=== PATIENT | male | born 1940 | race Caucasian/White ===

== ENCOUNTER 2018-05-10 12:11 | Emergency (ER) | payer MEDICARE ==
--- NOTE | 2018-05-10 12:36 | Emergency Department Record ---
History of Present Illness - General Chief complaint: Male Urogenital Problem Stated complaint: URINATING BLOOD Time Seen by Provider: 05/10/18 12:35 Source: Patient Mode of Arrival: Ambulatory - History of Present Illness Initial comments: The patient states he began urinating blood sometime during the night. He states this happened last January and he was admitted to [facility] for this as well as for bradycardia. He was instructed to followup with Dr. Weeks urology, but has not yet seen him--he has an appointment on 06-05-18 in his office, he thinks for a cystoscopy. Today the "same thing" happened as before. He denies a sense of urinary retention, nausea, abdominal pain, flank pain, fevers, chills , or any discomfort. Improves with: None Worsens with: None Reports: Blood in urine - Related Data Previous Rx's Medication Instructions Recorded Ciprofloxacin HCl [Cipro] 500 mg PO Q12HR #20 tablet 05/10/18 Allergies Allergy/AdvReac Type Severity Reaction Status Date / Time No Known Drug Allergies Allergy Verified 05/10/18 12:19 Travel Screening - Travel/Exposure Within Last 30 Days Have you traveled within the last 30 days?: No Review of Systems Reviewed: No additional complaints except as noted below Constitutional: Reports: As per HPI. Denies: Chills, Fever, Malaise, Night sweats, Weakness, Weight change Eyes: Reports: As per HPI. Denies: Eye discharge, Eye pain, Photophobia, Vision change ENT: Reports: As per HPI. Denies: Congestion, Dental pain, Ear pain, Epistaxis , Hearing loss, Throat pain Respiratory: Reports: As per HPI. Denies: Cough, Dyspnea, Hemoptysis, Stridor, Wheezes Cardiovascular: Reports: As per HPI. Denies: Arrhythmia, Chest pain, Dyspnea on exertion, Edema, Murmurs, Orthopnea, Palpitations, Paroxysmal nocturnal dyspnea, Rheumatic Fever, Syncope Endocrine: Reports: As per HPI. Denies: Fatigue, Heat or cold intolerance, Polydipsia, Polyuria Gastrointestinal: Reports: As per HPI. Denies: Abdominal pain, Constipation, Diarrhea, Hematemesis, Hematochezia, Melena, Nausea, Vomiting Genitourinary: Reports: As per HPI. Denies: Dysuria, Frequency, Hematuria, Incontinence, Retention, Testicular pain, Testicular mass, Urgency Musculoskeletal: Reports: As per HPI. Denies: Arthralgia, Back pain, Gout, Joint swelling, Myalgia, Neck pain Skin: Reports: As per HPI. Denies: Bruising, Change in color, Change in hair/ nails, Lesions, Pruritus, Rash Neurological: Reports: As per HPI. Denies: Abnormal gait, Confusion, Headache, Numbness, Paresthesias, Seizure, Tingling, Tremors, Vertigo, Weakness Psychiatric: Reports: As per HPI. Denies: Anxiety, Auditory hallucinations, Depression, Homicidal thoughts, Suicidal thoughts, Visual hallucinations Hematological/Lymphatic: Reports: As per HPI. Denies: Anemia, Blood Clots, Easy bleeding, Easy bruising, Swollen glands Past Medical History - SOCIAL HISTORY Smoking Status: Former smoker Alcohol Use: None Drug Use: None - RESPIRATORY Hx Respiratory Disorders: No - CARDIOVASCULAR Hx Cardio Disorders: No - NEURO Hx Neuro Disorders: No - GI Hx GI Disorders: No - Hx Genitourinary Disorders: Yes Hx UTI: Yes Comment:: currently sees Dr Weeks for urinating blood - ENDOCRINE Hx Endocrine Disorders: No - MUSCULOSKELETAL Hx Musculoskeletal Disorders: No - PSYCH Hx Psych Problems: No - HEMATOLOGY/ONCOLOGY Hx Hematology/Oncology Disorders: No Family Medical History Any Significant Family History?: No Physical Exam - General General Appearance: Alert, Oriented x3, Cooperative, No acute distress - Head Head exam: Normal inspection - Eye Eye exam: Normal appearance, PERRL Pupils: Normal accommodation - ENT ENT exam: Normal exam, Mucous membranes moist, Normal external ear exam, Normal orophraynx, TM's normal bilaterally Ear exam: Normal external inspection. negative: External canal tenderness Nasal Exam: Normal inspection. negative: Discharge, Sinus tenderness Mouth exam: Normal external inspection, Tongue normal Teeth exam: Normal inspection. negative: Dental caries Throat exam: Normal inspection. negative: Tonsillar erythema, Tonsillar exudate - Neck Neck exam: Normal inspection, Full ROM. negative: Tenderness - Respiratory Respiratory exam: Normal lung sounds bilaterally. negative: Respiratory distress - Cardiovascular Cardiovascular Exam: Regular rate, Normal rhythm, Normal heart sounds - GI/Abdominal GI/Abdominal exam: Soft, Normal bowel sounds. negative: Tenderness - Rectal Rectal exam: Deferred - exam: Deferred - Extremities Extremities exam: Normal inspection, Full ROM, Normal capillary refill. negative: Tenderness - Back Back exam: Reports: Normal inspection, Full ROM. Denies: CVA tenderness (R), CVA tenderness (L), Muscle spasm, Rash noted, Tenderness - Neurological Neurological exam: Alert, CN II-XII intact, Normal gait, Oriented X3, Reflexes normal. negative: Motor sensory deficit - Psychiatric Psychiatric exam: Normal affect, Normal mood - Skin Skin exam: Dry, Intact, Normal color, Warm Course Vital Signs 05/10/18 12:20 Temperature 97.7 F Pulse Rate 50 L Respiratory 18 Rate Blood Pressure 189/83 Pulse Ox 97 - Reevaluation(s) Reevaluation #1: Discussed case with Dr. Weeks who agrees to see patient in his office next week as he is an established patient. Patient and family informed, all questions answered. Will be sent home on cipro. The patient states he urinated once more just now, passed a clot, and now the rest of his urine has cleared. He was informed to return to an EDept if he is unable to pass his urine. 05/10/18 14:26 Medical Decision Making - Management Options MDM Management: Additional Work-up Planned (e.g. ADM/Transfer/OP Study) (Dr. Weeks follow up in his office) - Data Complexity MDM Data: Labs Ordered and/or Reviewed - Lab Data Result diagrams: 05/10/18 12:30 05/10/18 12:30 Disposition Disposition: Discharge Clinical Impression: Cystitis Hematuria Qualifiers: Hematuria type: gross Qualified Code(s): R31.0 - Gross hematuria Disposition: Home, Self-Care Condition: (1) Good Instructions: Urinary Tract Infection in Men (ED), Hematuria (ED) Additional Instructions: Take cipro as directed until gone. Call Dr. Weeks's office today or a.m. for appointment next week for presumed cystoscopy. Plenty of fluids. Continue present medications. Prescriptions: Ciprofloxacin HCl [Cipro] 500 mg PO Q12HR #20 tablet Forms: Patient Portal Access Quality - Quality Measures Quality Measures: N/A - Blood Pressure Screening Does Patient Have Any of the Following: No Blood Pressure Classification: Hypertensive Reading Systolic Measurement: 168 Diastolic Measurement: 79 Screening for High Blood Pressure: < First Hypertensive BP, F/U Documented > [ G8950] First Hypertensive Follow-up Interventions: Follow-up with rescreen GT 1 day and LT 4 weeks.
[2018-05-10] MEDS ORDERED: 0.9 % SODIUM CHLORIDE 1,000 ML BAG IV ONE (12:43)
[2018-05-10 13:05] LABS: BASO % 2.1 % (0-6); EOS % 4.6 % (0-6); HEMATOCRIT 42.3 % (42.0-52.0); HEMOGLOBIN 14.1 gm/dl (14.0-18.0); LYMPH % 26.5 % (16-45); MEAN CORPUSCULAR HGB CONC 33.3 g/dl (32-36); MEAN PLATELET VOLUME 12.1 fl (7.4-10.4); MONO % 14.8 % (0-9); PLATELET COUNT 171 K/uL (130-400); RED BLOOD COUNT 4.86 M/uL (4.40-5.70); RED CELL DISTRIBUTION WIDTH 14.9 % (11.5-14.5); WHITE BLOOD COUNT W/O DIFF 2.8 K/uL (4.2-12.2)
[2018-05-10 13:14] LABS: BLOOD UREA NITROGEN 12 mg/dL (8-23); CREATININE 0.7 mg/dL (0.7-1.2); EST GLOMERULAR FILTRATION RATE > 60 mL/min
[2018-05-10 13:15] LABS: TOTAL PROTEIN 6.9 g/dL (6.6-8.7)
[2018-05-10 13:17] LABS: GLUCOSE,RANDOM 93 mg/dL (74-109)
[2018-05-10 13:19] LABS: ALB/GLOB RATIO 1.4 (1.1-1.8); ALT/SGPT 12 U/L (<41); AST/SGOT 20 U/L (10.0-50.0)
[2018-05-10 13:20] LABS: ALKALINE PHOSPHATASE 73 U/L (40-129)
[2018-05-10 13:22] LABS: URINE APPEARANCE CLOUDY; URINE BILIRUBIN NEGATIVE (NEGATIVE); URINE BLOOD LARGE (NEGATIVE); URINE COLOR RED; URINE KETONE NEGATIVE (NEGATIVE); URINE LEUKOCYTE ESTERASE TRACE (NEGATIVE); URINE NITRITE POSITIVE (NEGATIVE); URINE UROBILINOGEN 0.2 E.U./dL (0.20 - 1.00)
[2018-05-10 13:23] LABS: URINE PROTEIN 300 mg/dL (NEGATIVE)
[2018-05-10 13:27] LABS: URINE EPITHELIAL CELLS NONE SEEN (FEW)
[2018-05-10 13:28] LABS: AMPHETAMINE SCREEN URINE NOT DETECTED; BARBITURATE SCREEN URINE NOT DETECTED; BENZODIAZEPINE SCREEN URINE NOT DETECTED; COCAINE SCREEN URINE NOT DETECTED; METHADONE SCREEN URINE NOT DETECTED; METHAMPHETAMINE SCREEN NOT DETECTED; OPIATE SCREEN URINE NOT DETECTED; OXYCODONE SCREEN URINE NOT DETECTED; PHENCYCLIDINE SCREEN URINE NOT DETECTED; PROPOXYPHENE SCREEN URINE NOT DETECTED; THC SCREEN URINE NOT DETECTED; TRICYCLIC ANTIDEPRESSANT SCRN NOT DETECTED
[2018-05-10] MEDS ORDERED: CEFTRIAXONE SODIUM 1 GM in 0.9 % SODIUM CHLORIDE 100ML 100 ML IVPB ONE (13:47)
== END 2018-05-10 14:52 | disposition home or self-care (01) ==
LOC: ER 12:11
DX: N30.01 Acute cystitis with hematuria (principal); Z87.891 Personal history of nicotine dependence
CPT/HCPCS: 80053; 80305; 81001; 85025; 96365; 99284; J7030

== ENCOUNTER 2019-02-01 11:08 | Emergency (ER) | payer MEDICARE ==
--- NOTE | 2019-02-01 11:21 | Emergency Department Record ---
History of Present Illness - General Chief complaint: Male Urogenital Problem Stated complaint: BLOOD IN URINE Time Seen by Provider: 02/01/19 11:15 Source: Patient Mode of Arrival: Ambulatory Limitations: No limitations - History of Present Illness Initial comments: 78 yo male presents with intermittent blood in his urine the last one day. He has seen blood on two voids. No retention. He has normal yellow urine in between voids with blood. No pain. He has had a sense of urgency on a couple voids. He had similar symptoms last fall. He was scheduled to see Dr Weeks last year but missed the appointment due to bad [place]. No cancer history. No renal stones. He has had UTIs prior. No back pain. No scrotal pain or swelling. MD Complaint: Other (Blood in the urine) -: Days(s) (1) Radiation: None Severity: Mild Quality: Other (No pain) Consistency: Intermittent (occurred twice) Improves with: None Worsens with: Urination Other (Asymptomatic) Reports: Blood in urine - Related Data Home Medications Medication Instructions Recorded Confirmed Last Taken Multivitamin/Iron/Folic Acid 1 tab PO DAILY 02/01/19 02/01/19 1 Day Ago [Centrum] ~01/31/19 Previous Rx's Medication Instructions Recorded Cephalexin [Keflex] 500 mg PO TID #21 cap 02/01/19 Tamsulosin HCl [Flomax] 0.4 mg PO DAILY #30 cap.er.24h 02/01/19 Allergies Allergy/AdvReac Type Severity Reaction Status Date / Time No Known Drug Allergies Allergy Verified 02/01/19 11:18 Review of Systems Constitutional: Denies: Chills, Fever, Malaise, Weakness Eyes: Denies: Eye discharge ENT: Denies: Congestion, Throat pain Respiratory: Denies: Cough, Dyspnea Cardiovascular: Reports: Dyspnea on exertion (with exertion for about 2 years). Denies: Chest pain, Edema, Palpitations, Syncope Endocrine: Reports: Fatigue Gastrointestinal: Denies: Abdominal pain, Diarrhea, Nausea, Vomiting Genitourinary: Reports: Hematuria, Urgency. Denies: Dysuria, Frequency, Incontinence, Retention, Testicular pain, Testicular mass Musculoskeletal: Denies: Arthralgia, Back pain, Myalgia, Neck pain Skin: Denies: Bruising, Change in color, Rash Neurological: Denies: Headache Psychiatric: Denies: Anxiety Hematological/Lymphatic: Denies: Easy bleeding, Easy bruising Past Medical History - SOCIAL HISTORY Smoking Status: Former smoker Drug Use: None - RESPIRATORY Hx Respiratory Disorders: No - CARDIOVASCULAR Hx Cardio Disorders: No - NEURO Hx Neuro Disorders: No - GI Hx GI Disorders: No - Hx Genitourinary Disorders: Yes Hx UTI: Yes Comment:: currently sees Dr Weeks for urinating blood - ENDOCRINE Hx Endocrine Disorders: No - MUSCULOSKELETAL Hx Musculoskeletal Disorders: No - PSYCH Hx Psych Problems: No - HEMATOLOGY/ONCOLOGY Hx Hematology/Oncology Disorders: No Physical Exam - General General Appearance: Alert, Oriented x3, Cooperative, No acute distress Limitations: No limitations - Head Head exam: Atraumatic, Normal inspection - Eye Eye exam: Normal appearance. negative: Conjunctival injection - ENT ENT exam: Normal exam, Mucous membranes moist Ear exam: Normal external inspection Nasal Exam: Normal inspection Mouth exam: Normal external inspection - Neck Neck exam: Normal inspection - Respiratory Respiratory exam: Normal lung sounds bilaterally. negative: Respiratory distress - Cardiovascular Cardiovascular Exam: Regular rate, Normal rhythm, Normal heart sounds - GI/Abdominal GI/Abdominal exam: Soft. negative: Distended, Guarding, Mass, Tenderness - Back Back exam: Denies: CVA tenderness (R), CVA tenderness (L), Tenderness - Neurological Neurological exam: Alert, Oriented X3 - Psychiatric Psychiatric exam: Normal affect, Normal mood - Skin Skin exam: Dry, Intact, Normal color, Warm Course - Reevaluation(s) Reevaluation #1: 02/01/19 12:00 The CBC was reviewed WBC is 3 with normal Hgb and Plt The US is negative for signs of infection. Trace RBC's, 10-15 on Micro. 02/01/19 12:33 The BMP is normal The CT demonstrate a diffusely enlarged prostate with distended bladder consistent with bladder outlet obstruction. I recommended a hawthorne to drain the bladder. The patient states he just got up and urinated "alot". He is currently refusing a hawthorne. I spent a significant amount of time recommending a catheterization. He now agrees with the plan. 02/01/19 13:07 A hawthorne was placed by the RN. Significant relief with the hawthorne of the obstruction. We discussed the outpatient consultation was placed and he will get a call Monday with an appointment time. He will be taught leg bag use, reasons to return and what to monitor with the hawthorne Medical Decision Making - Lab Data Result diagrams: 02/01/19 11:30 02/01/19 11:30 Disposition Disposition: Discharge Clinical Impression: Hematuria, Urinary retention, Enlarged prostate Condition: (1) Good Instructions: Urinary Retention in Men (ED), Hawthorne Catheter Placement and Care (ED) Additional Instructions: Call your doctor for the next available follow up appointment Review this ER visit and the tests performed with your family doctor and Dr Weeks Return to the ER for a recheck if worse, any new concerns or questions with the hawthorne or its drainage Take the prescriptions provided as directed Stop the Flomax if you are lightheaded, dizzy or any other concerns Prescriptions: Tamsulosin HCl [Flomax] 0.4 mg PO DAILY #30 cap.er.24h Cephalexin [Keflex] 500 mg PO TID #21 cap Referrals: [facility] [Provider Group] Mohinder Weeks M.D. [MEDICAL DOCTOR] - DELILAH TORRES [MEDICAL DOCTOR] - Forms: Patient Portal Access Time of Disposition: 13:09 Quality - Quality Measures Quality Measures: N/A - Blood Pressure Screening Does Patient Have Any of the Following: No Blood Pressure Classification: Pre-Hypertensive BP Reading Systolic Measurement: 184 Diastolic Measurement: 80 Screening for High Blood Pressure: < Pre-Hypertensive BP, F/U Documented > [G8950] Pre-Hypertensive Follow-up Interventions: Referral to alternative/primary care provider.
[2019-02-01 11:43] LABS: HEMATOCRIT 40.5 % (42.0-52.0); HEMOGLOBIN 13.6 gm/dl (14.0-18.0); MEAN CORPUSCULAR HGB CONC 33.6 g/dl (32-36); MEAN PLATELET VOLUME 12.1 fl (7.4-10.4); PLATELET COUNT 166 K/uL (130-400); RED CELL DISTRIBUTION WIDTH 14.7 % (11.5-14.5); URINE APPEARANCE CLEAR; URINE BILIRUBIN NEGATIVE (NEGATIVE); URINE BLOOD TRACE-I (NEGATIVE); URINE COLOR YELLOW; URINE GLUCOSE (UA) NEGATIVE (NEGATIVE); URINE KETONE NEGATIVE (NEGATIVE); URINE LEUKOCYTE ESTERASE NEGATIVE (NEGATIVE); URINE NITRITE NEGATIVE (NEGATIVE); URINE PROTEIN NEGATIVE (NEGATIVE); URINE UROBILINOGEN 0.2 E.U./dL (0.20 - 1.00)
[2019-02-01 11:52] LABS: URINE EPITHELIAL CELLS NONE SEEN (FEW); URINE WBC NONE SEEN (0-2/hpf)
[2019-02-01 11:56] LABS: BLOOD UREA NITROGEN 16 mg/dL (8-23); CREATININE 0.7 mg/dL (0.7-1.2); EST GLOMERULAR FILTRATION RATE > 60 mL/min; INR 1.1; PARTIAL THROMBOPLASTIN TIME 28.9 SECONDS (24.5-39.1); PROTHROMBIN TIME (PATIENT) 10.9 SECONDS (9.5-12.1)
[2019-02-01 11:58] LABS: MEAN CORPUSCULAR HEMOGLOBIN 29.5 pg (27-33)
[2019-02-01 11:59] LABS: ABSOLUTE NEUTROPHIL COUNT 1.72; GLUCOSE,RANDOM 127 mg/dL (74-109)
[2019-02-01 12:00] LABS: PLATELET ESTIMATE NORMAL (NORMAL)
[2019-02-01] MEDS ORDERED: LIDOCAINE UROJECT 10 ML APPL MM ONE (12:46)
--- NOTE | 2019-02-04 17:18 | CT SCAN REPORT ---
EXAM: CT SCAN ABDOMEN/PELVIS WO CONTRAST HISTORY: BLOOD IN URINE FOR THE LAST 24 HOURS. TECHNIQUE: Routine noncontrast CT of the abdomen and pelvis is performed. Oral contrast was not utilized. Lack of oral and IV contrast utilization limits evaluation of the bowel and solid viscera respectively. COMPARISON: None. FINDINGS: The lung bases are clear. No pleural or pericardial effusion. The heart is at the upper limits of normal in size. There is atherosclerotic calcification of the visualized branches of the left coronary artery and the distal right coronary artery. The liver, spleen, pancreas, and adrenal glands are normal in appearance. The gallbladder is unremarkable and no biliary ductal dilatation is seen. No intra- abdominal nor retroperitoneal lymphadenopathy. Minor diffuse atherosclerosis without aneurysmal dilatation of the abdominal aorta nor iliac arteries. No gross bowel dilatation nor bowel wall thickening. The appendix is partially visualized and normal in appearance. There is marked enlargement of the prostate measuring 7.4 x 5.7 x 6 cm. There is associated marked distention of the urinary bladder, which extends superiorly to the mid to upper abdominal level. This measures 20 x 10 x 16 cm. No focal urinary bladder wall thickening is seen. There is associated mild prominence of the proximal renal collecting systems without obstructing ureteral calculus. This likely relates to bladder outlet obstruction. There is a large fluid density mass arising exophytically from the lower pole of the right kidney measuring 6.1 x 6 cm. This is consistent with a benign cyst. No other renal mass nor nephrolithiasis. No lytic or blastic bone lesion. IMPRESSION: 1. MARKED ENLARGEMENT OF THE PROSTATE GLAND. MARKED DISTENTION OF THE URINARY BLADDER LIKELY RELATING TO BLADDER OUTLET OBSTRUCTION. NO ASSOCIATED FOCAL BLADDER WALL ABNORMALITY. 2. MILD PROMINENCE OF THE PROXIMAL RENAL COLLECTING SYSTEMS LIKELY ON THE BASIS OF BLADDER OUTLET OBSTRUCTION. NO OBSTRUCTING URETERAL LESION. 3. A 6.1 CM CYST ARISING EXOPHYTICALLY FROM THE LOWER POLE OF THE RIGHT KIDNEY. JOB NUMBER: [id number] MTDD
== END 2019-02-01 14:09 | disposition home or self-care (01) ==
LOC: ER 11:08
DX: N32.0 Bladder-neck obstruction (principal); R31.0 Gross hematuria; R33.9 Retention of urine, unspecified; N40.0 Benign prostatic hyperplasia without lower urinary tract symptoms; Z87.891 Personal history of nicotine dependence
CPT/HCPCS: 74176; 80048; 81001; 85027; 85610; 85730; 99283; 99284